=== PATIENT | female | born 1995 | race Caucasian/White ===

== ENCOUNTER 2019-05-22 01:40 | Outpatient (CLI) | payer OTHER ==
[2019-05-22] MEDS ORDERED: ONDANSETRON 4 MG/2 ML VIAL IVP STA (02:13)
[2019-05-22] MEDS: LACTATED RINGERS 1,000 ML IV SCH ×2 (02:25→03:02)
[2019-05-22 03:09] VITALS: BP 111/70; PULSE 96; RESP 16; TEMP 98.5
[2019-05-22 03:11] LABS: African American GFR (CKD) >90 (>60 ml/min/1.73 sqM); Anion Gap 9 mmol/L; Blood Urea Nitrogen 8 mg/dL (7-17); Carbon Dioxide 23 mmol/L (22-30); Chloride 104 mmol/L (98-107); Glucose 100 mg/dL (74-99); Potassium 3.7 mmol/L (3.5-5.1); Sodium 136 mmol/L (137-145)
[2019-05-22 03:35] LABS: Basophils % (A) 0 %; Eosinophils # (A) 0.1 k/uL (0-0.7); Eosinophils % (A) 1 %; HGB 10.8 gm/dL (11.4-16.0); Lymphocytes % (A) 10 %; MCH 31.6 pg (25.0-35.0); MCHC 33.7 g/dL (31.0-37.0); MCV 93.7 fL (80.0-100.0); Mean Platelet Volume 7.7; Monocytes # (A) 0.5 k/uL (0-1.0); Monocytes % (A) 5 %; Neutrophils # (A) 8.4 k/uL (1.3-7.7); Neutrophils % (A) 82 %; Platelet Count 132 k/uL (150-450); RBC 3.41 m/uL (3.80-5.40); RDW 13.6 % (11.5-15.5); WBC 10.2 k/uL (3.8-10.6)
[2019-05-22 03:41] LABS: Appearance,Urine Cloudy (Clear); Bacteria,Urine Moderate /hpf; Bilirubin,Urine Negative (Negative); Blood,Urine Moderate (Negative); Color,Urine Light Yellow; Glucose,Urine (UA) Negative (Negative); Ketones,Urine Negative (Negative); Leukocyte Esterase,Urine Large (Negative); Mucus,Urine Rare /hpf; Nitrite,Urine Positive (Negative); PH, Urine 6.5 (5.0-8.0); Protein,Urine Trace (Negative); Specific Gravity,Urine 1.009 (1.001-1.035); Squamous Epithelial Cell,Urine 8 /hpf (0-4); Urobilinogen,Urine <2.0 mg/dL (<2.0); WBC,Urine 8 /hpf (0-5)
[2019-05-22] MEDS ORDERED: ceFAZolin IN SWFI 2 GM/20 ML SYRINGE IVP ONE (03:49)
--- NOTE | 2019-05-27 09:23 | P.MSEPDOC ---
Presenting Problems - Arrival Data Date of Arrival on Unit: 05/22/19 Time of Arrival on Unit: 02:09 Mode of Transport: Ambulatory - Complaint OB-Reason for Admission/Chief Complaint: Pain Comment: Back pain 05/21 that started around 1500 Medical History - Information : 2 Para: 0 Term: 0 : 0 Abortions: Spontaneous or Elective: 0 Number of Living Children: 0 - Gestational Age Gestational Age by SHERLYN (wks/days): 22 Weeks and 0 Days - History Complications: No Care Review of Systems - Review of Systems Constitutional: No problems Breast: No problems ENT: No problems Cardiovascular: No problems Respiratory: No problems Gastrointestinal: No problems Genitourinary: No problems Musculoskeletal: No problems Neurological: No problems Skin: No problems Vital Signs - Temperature Temperature: 98.5 F Temperature Source: Oral - Pulse Right Brachial Pulse Rate: 96 Pulse Assessment Method: Automatic Cuff - Respirations Respiratory Rate: 16 Oxygen Delivery Method: Room Air - Blood Pressure Right Arm Blood Pressure: 111/70 Blood Pressure Mean: 83 Blood Pressure Source: Automatic Cuff Medical Screen Scoring (Pre) - Cervical Exam Dilation: Exam Deferred Effacement: Exam Deferred - Uterine Contractions Frequency: N/A Duration: N/A Intensity: N/A - Maternal Vital Signs Maternal Temperature: N/A - Maternal Trauma Maternal Trauma: N/A - Assessment - Baby A Baseline FHR: 135 Heart Rate - NICHD Category: Category I (Normal) = 0 - Total Score - Baby A Total Score - Baby A: 0 - Total Score - Baby B Total Score - Baby B: 0 - Total Score - Baby C Total Score - Baby C: 0 - Level of Risk - Baby A Level of Risk - Baby A: Low (0-5) - Level of Risk - Baby B Level of Risk - Baby B: Low (0-5) - Level of Risk - Baby C Level of Risk - Baby C: Low (0-5) Physician Notification (Pre) - Physician Notified Physician Notified Date: 05/22/19 Physician Notified Time: 02:09 Spoke With: Dr. Johnson New Order Received: Yes - Notification Comment Comment: Orders for IV hydration, UA, CBC, BMP, Zofran 4mg Medical Screen Scoring (Post) - Cervical Exam Dilation: Exam Deferred Effacement: Exam Deferred - Uterine Contractions Frequency: N/A Duration: N/A Intensity: N/A - Maternal Vital Signs Maternal Temperature: N/A Maternal Blood Pressure: N/A Signs of Preeclampsia: N/A Maternal Respirations: N/A - Pain Assessment Pain Location and Character: Back Pain Scale Used: Numeric (1 - 10) Pain Intensity: 4 Pain Management Goal: 2 Pain Description: *Acute, Sore Pain Radiation Location: yes, right leg Pain Frequency: Constant Pain Duration: 2 Pain Duration Units: Days Pain Behavior: Vocalization Pain Aggravating Factors: None - Maternal Trauma Maternal Trauma: N/A - Total Score Total Score - Baby A: 0 Total Score - Baby B: 0 Total Score - Baby C: 0 - Post Treatment Level of Risk Post Treatment Level of Risk - Baby A: Low (0-5) Physician Notification (Post) - Physician Notified Physician Notified Date: 05/22/19 Physician Notified Time: 03:49 Spoke With: Dr. Johnson New Order Received: Yes - Notification Comment Comment: Labs reviewed, orders for 2G Kefzol then pt may be d/c home. Face sheet left for Dr. Johnson to call in prescription for pt to filler picker in the morning. Disposition - Disposition OB Disposition: Discharge to home, Written follow up instructions reviewed Discharge Date: 05/22/19 Discharge Time: 04:35 I agree with the RN Medical Screening Exam: Yes Risk & Benefit of care provided described in d/c instruction: Yes Diagnosis: URINARY TRACT INFECTION, SITE NOT SPECIFIED
== END 2019-05-22 04:35 | disposition home or self-care (01) ==
LOC: FBPOP 01:40
PROVIDERS: ATTEND Obstetrics & Gynecology Obstetrics
DX: O23.42 Unspecified infection of urinary tract in pregnancy, second trimester (principal); Z3A.22 22 weeks gestation of pregnancy
CPT/HCPCS: 96360; 96361; 96375; 80048; 85025; 81001; G0463; J2405; J0690; 99214

== ENCOUNTER 2019-09-20 17:36 | Outpatient (CLI) | payer OTHER ==
[2019-09-20 21:21] VITALS: BP 128/85; PULSE 100; RESP 16; TEMP 97.7
--- NOTE | 2019-09-21 10:55 | P.MSEPDOC ---
Presenting Problems - Arrival Data Date of Arrival on Unit: 09/20/19 Time of Arrival on Unit: 17:38 Mode of Transport: Ambulatory - Complaint OB-Reason for Admission/Chief Complaint: Possible Onset of Labor Comment: ctx since 1429 getting stronger Medical History - Information : 2 Para: 0 Term: 0 : 0 Abortions: Spontaneous or Elective: 0 Number of Living Children: 0 - Gestational Age Gestational Age by SHERLYN (wks/days): 39 Weeks and 1 Days Review of Systems - Review of Systems Constitutional: No problems Breast: No problems ENT: No problems Cardiovascular: No problems Respiratory: No problems Gastrointestinal: No problems Genitourinary: No problems Musculoskeletal: No problems Neurological: No problems Skin: No problems Vital Signs - Temperature Temperature: 97.7 F Temperature Source: Temporal Artery Scan - Pulse Right Brachial Pulse Rate: 100 Pulse Assessment Method: Automatic Cuff - Respirations Respiratory Rate: 16 Oxygen Delivery Method: Room Air O2 Sat by Pulse Oximetry: 100 - Blood Pressure Right Arm Blood Pressure: 128/85 Blood Pressure Mean: 99 Blood Pressure Source: Automatic Cuff Medical Screen Scoring (Pre) - Cervical Exam Dilation: 1-3 cm = 1 Effacement: More than 50% = 2 Membranes: Intact - Uterine Contractions Frequency: > or = 36 weeks =2 - Assessment - Baby A Baseline FHR: 130 Heart Rate - NICHD Category: Category I (Normal) = 0 Position: N/A Station: N/A - Total Score - Baby A Total Score - Baby A: 5 - Total Score - Baby B Total Score - Baby B: 5 - Total Score - Baby C Total Score - Baby C: 5 - Level of Risk - Baby A Level of Risk - Baby A: Low (0-5) - Level of Risk - Baby B Level of Risk - Baby B: Low (0-5) - Level of Risk - Baby C Level of Risk - Baby C: Low (0-5) Physician Notification (Pre) - Physician Notified Physician Notified Date: 09/20/19 Physician Notified Time: 20:05 New Order Received: Yes (discharge to home) - Notification Comment Comment: contractions 3-5 min apart, no cervical exchange operator last hour, pt comfortable going home to return with stronger contractions Disposition - Disposition OB Disposition: Discharge to home, Written follow up instructions reviewed Discharge Date: 09/20/19 Discharge Time: 20:08 I agree with the RN Medical Screening Exam: Yes Risk & Benefit of care provided described in d/c instruction: Yes Diagnosis: FALSE LABOR AT OR AFTER 37 COMPLETED WEEKS OF GESTATION
== END 2019-09-20 20:08 | disposition home or self-care (01) ==
LOC: FBPOP 17:36
PROVIDERS: ATTEND Obstetrics & Gynecology
DX: O47.1 False labor at or after 37 completed weeks of gestation (principal); Z3A.39 39 weeks gestation of pregnancy
CPT/HCPCS: 59025; G0463; 99213

== ENCOUNTER 2019-09-24 06:00 | Inpatient (IN) | payer OTHER ==
[2019-09-24] MEDS ORDERED: TERBUTALINE 1 MG/ML VIAL SQ PRN (06:13)
[2019-09-24] MEDS ORDERED: LIDOCAINE 0.5% (PF) 5 MG/ML (50 ML SDV) SQ PRN (06:13)
[2019-09-24] MEDS ORDERED: OXYTOCIN 10 UNIT/ML 1 ML VIAL IM PRN (06:13)
[2019-09-24] MEDS ORDERED: METHYLERGONOVINE 0.2 MG/ML 1 ML AMP IM PRN (06:13)
[2019-09-24] MEDS ORDERED: CARBOPROST TROMETHAMINE 250 MCG/ML 1 ML AMP IM PRN (06:13)
[2019-09-24] MEDS ORDERED: OXYTOCIN 30 UNITS/500 ML NS 30 UNIT in SALINE 1 500ML.BAG IV SCH (06:30)
[2019-09-24 06:34] LABS: Basophils # (A) 0.1 k/uL (0-0.2); Basophils % (A) 1 %; Eosinophils # (A) 0.2 k/uL (0-0.7); Eosinophils % (A) 2 %; HCT 32.1 % (34.0-46.0); HGB 10.4 gm/dL (11.4-16.0); Hypochromasia Slight; Lymphocytes # (A) 1.1 k/uL (1.0-4.8); Lymphocytes % (A) 16 %; MCH 27.8 pg (25.0-35.0); MCHC 32.3 g/dL (31.0-37.0); MCV 86.2 fL (80.0-100.0); Mean Platelet Volume 8.7; Monocytes # (A) 0.4 k/uL (0-1.0); Monocytes % (A) 5 %; Neutrophils # (A) 5.3 k/uL (1.3-7.7); Neutrophils % (A) 74 %; Platelet Count 160 k/uL (150-450); RBC 3.73 m/uL (3.80-5.40); RDW 14.9 % (11.5-15.5); WBC 7.2 k/uL (3.8-10.6)
[2019-09-24 06:40] VITALS: BMI 21.7
[2019-09-24] MEDS: LACTATED RINGERS 1,000 ML IV SCH ×3 (07:13→12:32)
--- NOTE | 2019-09-24 08:39 | P.HPOB ---
History of Present Illness H&P Date: 09/24/19 Chief Complaint: IUP at 39 and 5/sevenths weeks This is a pleasant 24-year-old 2 para 0010 at 39-5/7 weeks that presents to labor and delivery for induction of labor. Patient has a prior complicated by 18 which was terminated after 20 weeks. Patient's care during this has been essentially uncomplicated although she has struggled with poor maternal weight gain. On blood work she has a blood type of A+, rubella immune, RPR nonreactive, hepatitis B surface antigen negative, HIV negative, she did undergo genetic screening which was normal. Group beta strep was negative. Today she notes good movement she has been having irregular contractions for the last week, she denies loss of fluid or vaginal bleeding at this time. Review of Systems Constitutional: Reports fatigue, Denies chills, Denies fever Ears, nose, mouth and throat: Denies headache Cardiovascular: Reports leg edema Respiratory: Denies dyspnea Gastrointestinal: Denies constipation, Denies diarrhea, Denies nausea, Denies vomiting Genitourinary: Reports Past Medical History Past Medical History: Asthma History of Any Multi-Drug Resistant Organisms: None Reported Past Surgical History: No Surgical Hx Reported Past Anesthesia/Blood Transfusion Reactions: No Reported Reaction Past Psychological History: No Psychological Hx Reported Smoking Status: Never smoker Past Alcohol Use History: None Reported Past Drug Use History: None Reported - Past Family History Mother Family Medical History: Coronary Artery Disease (CAD), Hypertension, Myocardial Infarction ([place]) Additional Family Medical History / Comment(s): Previous infant - trisomy 18. induced aboriton Medications and Allergies Home Medications Medication Instructions Recorded Confirmed Type Pnv No.95/Ferrous Fum/Folic AC 1 tab PO DAILY 09/20/19 09/24/19 History [ Multivitamin Tablet] Allergies Allergy/AdvReac Type Severity Reaction Status Date / Time No Known Allergies Allergy Verified 09/24/19 06:13 Exam Osteopathic Statement: *. No significant issues noted on an osteopathic structural exam other than those noted in the History and Physical/Consult. 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 heart tones are noted to be category 1 and she is marina every 3 minutes. On cervical exam she is 4/70/-2 amniotomy is performed and clear fluid was obtained. Results Result Diagrams: 09/24/19 06:00 Abnormal Lab Results - Last 24 Hours (Table) 09/24/19 Range/Units 06:00 RBC 3.73 L (3.80-5.40) m/uL Hgb 10.4 L (11.4-16.0) gm/dL Hct 32.1 L (34.0-46.0) % Assessment and Plan (1) Term Current Visit: Yes Status: Acute Code(s): Z34.90 - ENCNTR FOR SUPRVSN OF NORMAL , UNSP, UNSP TRIMESTER SNOMED Code(s): 40818434 Plan: Patient is admitted to labor and delivery for Pitocin induction of labor. Pitocin started per per hospital protocol patient is counseled on analgesic options during labor. Once she is uncomfortable she can elect Stadol versus epidural. Anticipate spontaneous vaginal delivery later today.
[2019-09-24] MEDS ORDERED: SODIUM CHLORIDE 0.9% 100 ML BAG ONE (10:02)
[2019-09-24] MEDS ORDERED: fentaNYL (PF) 50 MCG/ML 5 ML AMP ONE (10:02)
[2019-09-24] MEDS ORDERED: ROPIVACAINE 5MG/ML 20ML VIAL ONE (10:02)
[2019-09-24] MEDS ORDERED: ROPIVACAINE 100 MG, fentaNYL (PF) 200 MCG in SODIUM CHLORIDE 0.9% 76 ML EPIDURAL ONE (10:31)
[2019-09-24] MEDS ORDERED: WITCH HAZEL 1 EACH MED..PAD TOPICAL PRN (17:03)
[2019-09-24] MEDS ORDERED: ZOLPIDEM 5 MG TAB PO PRN (17:03)
[2019-09-24] MEDS ORDERED: LANOLIN CREAM 5 GM TUBE TOPICAL PRN (17:03)
[2019-09-24] MEDS ORDERED: diphenhydrAMINE 50 MG CAP PO PRN (17:03)
[2019-09-24] MEDS ORDERED: SIMETHICONE 80 MG CHEWABLE PO PRN (17:03)
[2019-09-24] MEDS ORDERED: diphenhydrAMINE 25 MG CAP PO PRN (17:03)
[2019-09-24] MEDS ORDERED: ACETAMINOPHEN TAB 325 MG TAB PO PRN (17:03)
[2019-09-24] MEDS ORDERED: HYDROCORTISONE 2.5% RECTAL CREAM 30 GM TUBE RECTAL PRN (17:03)
[2019-09-24] MEDS ORDERED: diphenhydrAMINE 50 MG/ML 1 ML VIAL IVP PRN ×2 (17:03)
[2019-09-24] MEDS ORDERED: BENZOCAINE/MENTHOL SPRAY 1 GM/SPRAY AEROSOL TOPICAL PRN (17:03)
[2019-09-24] MEDS ORDERED: OXYTOCIN 20 UNITS/1000 ML NS 1,000 ML IV SCH (17:15)
--- NOTE | 2019-09-24 17:15 | P.PROBDLV ---
Vaginal Delivery Note - . Vaginal Delivery Note: This is a 24yo at 39 5/7 weeks that presented to labor and delivery for induction of labor. Patient was admitted to labor and delivery for for full details on this patient see please see the dictated history and physical please patient was admitted and Pitocin was started per protocol. Patient progressed through labor eventually becoming uncomfortable and requesting epidural. Epidural was placed by the anesthesia Department without difficulty. She progre ssed to complete began pushing at +3 station maternal exhaustion was noted therefore a vacuum was applied and with one gentle pull the was delivered without difficulty a spontaneous cry was noted at . No pop offs were noted and the vacuum was only applied and used during 1 contraction. After two-minute delayed the umbilical cord was doubly clamped and cut and the placenta was delivered spontaneously intact with a three-vessel cord being noted. On inspection the patient's vaginal vault a second-degree midline laceration was noted this was repaired in the usual fashion with 3-0 Rapide. Hemostasis was appreciated after repair. The uterus is noted to be firm and below the umbilicus. Estimated blood loss was 300 mL. Infant girl delivered at 1642, weight of 6 lbs. 1 oz. with Apgars of 8 and 9. patient and infant tolerated delivery well and are resting comfortably. .
[2019-09-24] MEDS: IBUPROFEN 600 MG TAB PO PRN (21:25)
[2019-09-24] MEDS: SENNOSIDES-DOCUSATE SODIUM 1 EACH TAB PO SCH (21:25)
[2019-09-25] MEDS: IBUPROFEN 600 MG TAB PO PRN ×3 (03:56→19:08)
[2019-09-25 06:57] LABS: Basophils # (A) 0.1 k/uL (0-0.2); Basophils % (A) 1 %; Eosinophils # (A) 0.1 k/uL (0-0.7); Eosinophils % (A) 1 %; Hypochromasia Slight; Lymphocytes % (A) 10 %; MCH 28.1 pg (25.0-35.0); MCHC 32.5 g/dL (31.0-37.0); MCV 86.5 fL (80.0-100.0); Mean Platelet Volume 8.5; Monocytes # (A) 0.4 k/uL (0-1.0); Monocytes % (A) 4 %; Neutrophils # (A) 8.8 k/uL (1.3-7.7); Neutrophils % (A) 83 %; Platelet Count 129 k/uL (150-450); RBC 2.89 m/uL (3.80-5.40); RDW 15.1 % (11.5-15.5); WBC 10.5 k/uL (3.8-10.6)
[2019-09-25 07:05] LABS: HGB 8.1 gm/dL (11.4-16.0)
[2019-09-25] MEDS: SENNOSIDES-DOCUSATE SODIUM 1 EACH TAB PO SCH ×2 (08:46→19:43)
[2019-09-25] MEDS: PRENATAL VIT-IRON-FOLIC ACID 1 EACH CAP PO SCH (08:46)
--- NOTE | 2019-09-25 10:03 | P.DS ---
Providers Date of admission: 09/24/19 06:00 Expected date of discharge: 09/25/19 Attending physician: Catherine Johnson Primary care physician: Stated None Hospital Course: This is a 24-year-old white female 2 para 0010 EDC 09/26/2019 at 39-5/7 weeks' gestation. Patient presented for induction, essentially unremarkable with negative group B strep cultures, blood type A+, rubella status immune. Please see dictated history and physical for details. Artificial amniorrhexis revealed clear fluid. Oxytocin was started and titrated per hospital protocol. Patient went on to deliver a liveborn female infant, scores 8 and 9 at one and 5 minutes respectively. There was a small second-degree perineal laceration easily repaired. weight 2765 g or 6 lbs. 1 oz. Please see dictated delivery note for details. This morning the patient is doing well. She is voiding, and bleeding, passing flatus without difficulty. Vital signs are stable and she is afebrile. Fundus is firm and in the midline, symmetric and 18 week size. Extremities are negative for edema. Chest is clear in all [place]. is doing well. Patient has a breast pump at home for assistance. She will follow-up in the office with Dr. Johnson in 6 weeks. She is reminded no intercourse, tampons or douching. She will use [id number] Advil or Aleve, or Motrin or Tylenol as needed for pain. I've asked her to call with any fevers shakes or chills, foul smelling or copious lochia, with the passage of large blood clots, with any pain not alleviated by [id number] products, or indeed with any concerns. [place] infant will follow-up with oxidation engineer as recommended. Contraceptive options have been briefly reviewed, and she will discuss this further with Dr. Johnson in the office. Patient Condition at Discharge: Good Plan - Discharge Summary Discharge Rx Participant: No New Discharge Prescriptions: No Action Pnv No.95/Ferrous Fum/Folic AC [ Multivitamin Tablet] 1 tab PO DAILY Discharge Medication List Pnv No.95/Ferrous Fum/Folic AC [ Multivitamin Tablet] 1 tab PO DAILY 09/20/19 [History] Follow up Appointment(s)/Referral(s): Catherine Johnson DO [Doctor of Osteopathic Medicine] - 6 Weeks Discharge Disposition: HOME SELF-CARE
[2019-09-25] MEDS ORDERED: INFLUENZA VACCINE (6 MOS+) 60 MCG/0.5 ML SYRINGE IM ONE (17:07)
[2019-09-25 18:42] VITALS: RESP 16
[2019-09-26] MEDS: IBUPROFEN 600 MG TAB PO PRN ×2 (01:08→07:43)
[2019-09-26] MEDS: PRENATAL VIT-IRON-FOLIC ACID 1 EACH CAP PO SCH ×2 (07:43→16:04)
[2019-09-26] MEDS: SENNOSIDES-DOCUSATE SODIUM 1 EACH TAB PO SCH (07:44)
--- NOTE | 2019-09-26 08:31 | P.PNOBGVD ---
Subjective - Subjective Principal diagnosis: PPD 2 Interval history: Patient has done well since delivery. She states her lochia is minimal. She is breast-feeding with some difficulty. She is ambulating and voiding without difficulty. She did have a bowel movement without difficulty. She denies nausea or vomiting with eating or drinking. She states her pain is well- controlled and she is ready for discharge home. Patient states is currently being treated with bili lights for jaundice. Awaiting current blood draw Patient reports: Reports appetite normal, Reports voiding normally, Reports pain well controlled : doing well (On bili lights for elevated bilirubin) Objective - Latest Vital Signs Latest vital signs: Vital Signs Temp Pulse Resp BP 09/25/19 23:59 98.1 F 99 16 119/71 09/25/19 16:00 98.4 F 96 16 116/73 09/25/19 14:51 98.7 F 105 H 15 121/73 09/25/19 12:01 98.5 F 107 H 16 118/71 - Exam Extremities: Present: normal Abdomen: Present: normal appearance, soft Uterus: Present: normal, firm Assessment and Plan (1) Term Current Visit: Yes Status: Acute Code(s): Z34.90 - ENCNTR FOR SUPRVSN OF NO RMAL , UNSP, UNSP TRIMESTER SNOMED Code(s): 01576188 (2) Status post vacuum-assisted vaginal delivery Current Visit: Yes Status: Acute Code(s): Z87.59 - PERSONAL HISTORY OF COMP OF PREG, CHLDBRTH AND THE PUERP SNOMED Code(s): 062214913 (3) Obstetric vaginal laceration with second degree perineal laceration Current Visit: Yes Status: Acute Code(s): O70.1 - SECOND DEGREE PERINEAL LACERATION DURING DELIVERY SNOMED Code(s): 140115357 Plan: We'll plan discharge home today. instructions are reviewed with the patient in detail all questions are answered. Patient is urged to follow up in 4 weeks for routine care.
[2019-09-26 09:17] VITALS: BP 108/70; PULSE 91; TEMP 97.6
== END 2019-09-26 15:45 | disposition home or self-care (01) | DRG 807 ==
LOC: 4FBP 06:00
PROVIDERS: ADMIT Obstetrics & Gynecology Obstetrics; ATTEND Obstetrics & Gynecology Obstetrics
PROC: 10D07Z6 Extraction of Products of Conception, Vacuum, Via Natural or Artificial Opening (ICD-10-PCS; principal; 2019-09-24)
PROC: 3E033VJ Introduction of Other Hormone into Peripheral Vein, Percutaneous Approach (ICD-10-PCS; 2019-09-24)
PROC: 0KQM0ZZ Repair Perineum Muscle, Open Approach (ICD-10-PCS; 2019-09-24)
DX: O99.52 Diseases of the respiratory system complicating childbirth (principal); Z37.0 Single live birth; J45.909 Unspecified asthma, uncomplicated; O70.1 Second degree perineal laceration during delivery; O75.81 Maternal exhaustion complicating labor and delivery; Z3A.39 39 weeks gestation of pregnancy; Z82.49 Family history of ischemic heart disease and other diseases of the circulatory system
CPT/HCPCS: 85025; 86850; 86900; 86901